=== PATIENT | male | born 1960 | race Hispanic/Latino ===

== ENCOUNTER → 2022-08-28 | Outpatient (CLI) | payer OTHER, SELFPAY ==
[~2022-08-28] MED LIST: IOHEXOL 350 MG/ML 100ML INFUS..BTL IV ONE
== END | disposition home or self-care (01) ==
LOC: RAH 08-06 08:25
PROVIDERS: ATTEND Student in an Organized Health Care Education/Training Program
DX: R07.9 Chest pain, unspecified (principal); M47.815 Spondylosis without myelopathy or radiculopathy, thoracolumbar region
CPT/HCPCS: 75574; Q9967